=== PATIENT | female | born 1980 | race Caucasian/White ===

== ENCOUNTER 2016-09-28 19:30 | Emergency (ER) | payer OTHER ==
[~2016-09-28] VITALS: Ht 152.4 cm; Wt 124.3 kg
[~2016-09-28 19:30] MED LIST: Motrin PO
[2016-09-28 19:51] LABS: HEMATOCRIT 44.3 % (36.0-46.0); MCH 28.9 PG (29.0-34.0); MCHC 32.5 G/DL (30.0-36.0); MEAN PLAT.VOLUME 9.7 uM^3 (9.5-12.4); PLATELET COUNT 296 K/uL (156-360); RBC DIS.WIDTH-CV 15.4 % (11.8-14.6); RBC DIS.WIDTH-SD 49.6 % (39-53); RED BLOOD COUNT 4.98 M/uL (3.80-5.20); WHITE BLOOD COUNT 8.3 K/uL (4.1-10.2)
[2016-09-28 20:02] LABS: CHLORIDE 105 mEq/L (99-109); SODIUM 138 mEq/L (136-147)
[2016-09-28 20:05] LABS: GLUCOSE 105 mg/dL (70-99)
[2016-09-28 20:06] LABS: ANION GAP 10 MEQ/L (2-14); TOTAL BILIRUBIN 0.5 mg/dL (0.0-1.0)
[2016-09-28 20:08] LABS: ALKALINE PHOSPHATASE 77 IU/L (3-129); GFR ESTIMATE (CALCULATED) > 59 mL/min/
[2016-09-28 20:09] LABS: UREA NITROGEN (BUN) 6 mg/dL (9-23)
[2016-09-28 20:12] LABS: LIPASE 6 U/L (1.0-51.0)
[2016-09-28 20:18] LABS: QUANTITATIVE HCG < 4.0 MIU/ML
[2016-09-28 20:23] LABS: ADD MIUA? YES; BILIRUBIN NEGATIVE; BLOOD SMALL; COLOR YELLOW ((YELLOW)); GLUCOSE (STRIP) NEGATIVE; KETONES 5; LEUKOCYTES NEGATIVE; NITRITE NEGATIVE; PROTEIN (STRIP) NEGATIVE; SPECIFIC GRAVITY 1.016 (1.000-1.030); UROBILINOGEN 0.2 MG/DL (0.2-1.0)
[2016-09-28 20:30] LABS: BACTERIA NONE SEEN /HPF; EPITHELIAL CELLS RARE /HPF; MUCUS TRACE /LPF; RED BLOOD CELLS 0-5 /HPF (0-5); UCUL ADDED? NO; WHITE BLOOD CELLS 0-5 /HPF (0-5)
[2016-09-28] MEDS ORDERED: PERCOCET 5/31 TABLET PO (22:04)
[2016-09-28] MEDS ORDERED: ZOFRAN ODT4 MG PO (22:04)
[2016-09-28 22:20] VITALS: BP 136/88
== END 2016-09-28 22:46 | disposition home or self-care (01) ==
LOC: EME 19:30 → EXP 19:30
DX: K80.70 Calculus of gallbladder and bile duct without cholecystitis without obstruction (principal); R11.2 Nausea with vomiting, unspecified
CPT/HCPCS: 76705; 80053; 81003; 83690; 84702; 85027; 99281; 99285; J2270; J2405; J7030

== ENCOUNTER → 2017-04-05 | Outpatient (CLI) | payer MEDICARE ==
[~2017-04-05] MED LIST changes: +ADVIL,NUPRIN,M200 MG PO; +AMBIEN10 MG PO; +BUSPAR30 MG PO; +COGENTIN0.5 MG PO; +COLACE100 MG PO; +GABAPENTIN300 MG PO; +GUMMI BEAR MUL1 EACH PO; +LATUDA40 MG PO; +MELATONIN5 M1 PO; +PERCOCET 5/31 TABLET PO; +PRILOSEC20 MG PO; +PROAIR HFA8.5 GM IH; +RITALIN20 MG PO; +SPIRIVA1 INHALATI IH; +XANAX XR2 MG PO; +ZOFRAN ODT4 MG PO; +ZOLOFT100 MG PO
== END | disposition home or self-care (01) ==
LOC: CDC 12:20
DX: K80.20 Calculus of gallbladder without cholecystitis without obstruction (principal); R94.31 Abnormal electrocardiogram [ECG] [EKG]
CPT/HCPCS: 93000

== ENCOUNTER 2017-04-06 05:33 | Day surgery (SDC) | payer OTHER ==
[~2017-04-06] VITALS: Ht 154.9 cm; Wt 117.0 kg
[~2017-04-06 05:33] MED LIST changes: -COLACE100 MG PO; -GABAPENTIN300 MG PO
[2017-04-06] MEDS ORDERED: GABAPENTIN300 MG PO (06:00)
[2017-04-06 06:16] VITALS: BP 117/60
[2017-04-06] MEDS ORDERED: COLACE100 MG PO (10:40)
[2017-04-06] MEDS ORDERED: PERCOCET 5/31 TABLET PO (10:40)
[2017-04-06 11:35] VITALS: BP 119/86
[2017-04-06 12:30] VITALS: BP 134/81
== END 2017-04-06 12:30 | disposition home or self-care (01) ==
LOC: SDC 05:33
PROC: 0FT44ZZ Resection of Gallbladder, Percutaneous Endoscopic Approach (ICD-10-PCS; principal; 2017-04-06)
DX: K80.10 Calculus of gallbladder with chronic cholecystitis without obstruction (principal); J45.909 Unspecified asthma, uncomplicated; F31.81 Bipolar II disorder; F90.0 Attention-deficit hyperactivity disorder, predominantly inattentive type; K21.9 Gastro-esophageal reflux disease without esophagitis; R73.01 Impaired fasting glucose; F40.01 Agoraphobia with panic disorder; E66.9 Obesity, unspecified; Z68.43 Body mass index [BMI] 50.0-59.9, adult; F17.200 Nicotine dependence, unspecified, uncomplicated; Z80.0 Family history of malignant neoplasm of digestive organs; Z82.5 Family history of asthma and other chronic lower respiratory diseases
CPT/HCPCS: 88304; J0131; J0690; J1100; J1170; J2250; J2405; J2710; J3010